=== PATIENT | female | born 1985 | race Caucasian/White ===

== ENCOUNTER → 2016-08-03 | Day surgery (SDC) | payer MEDICAID ==
[2016-06-01 03:31] VITALS: BMI 42.0
[~2016-08-03] MED LIST: BUPIVACAINE 0.25% 30 ML VIAL ONE; CEFAZOLIN 1 GM VIAL ONE; FENTANYL 100 MCG/2 ML VIAL IV PRN; FENTANYL 100 MCG/2 ML VIAL ONE; HYDROmorphone 1 MG INJECTION IV PRN; LABETALOL 20 MG/4 ML SYRINGE IV PRN; MEPERIDINE 25 MG/ML TUBEX IV PRN; ONDANSETRON HCL 4 MG ODT TAB PO PRN; ONDANSETRON HCL 4 MG/2 ML VIAL IV PRN; PROMETHAZINE 25 MG/ML VIAL IV PRN; hydrALAZINE 20 MG/ML VIAL IV PRN
[2016-08-03 06:35] LABS: AUTOMATED BASOPHIL 0.5 % (0-2); AUTOMATED LYMPH 28.2 % (17-44); AUTOMATED MONOCYTE 7.8 % (3-10); AUTOMATED NEUTROPHIL 61.5 % (45-76); MPV 8.3 fL (7.4-10.4)
--- NOTE | 2016-08-03 06:59 | SC.ANESPOS ---
Post-Anesthesia Note LOC: [facility] Calling Post-Anesthesia Assessment: Awake, Returned to Baseline, Hemodynamically Stable , Pain Control Adequate Phase I & II Recovery Complete: Yes Apparent Anesthesia Complication: No : N - Vital Signs Blood Pressure: 135/63 Pulse: 76 Resp Rate: 16 O2 Sat: 98 Temp: 97.5 F
--- NOTE | 2016-08-03 07:07 | HIM.ANES ---
Anesthesia Evaluation & Plan Diagnoses: ENCOUNTER FOR OT GENERAL CNSL AND ADVICE ON CONTRACEPTION (08/03/16) Consented Procedure: laparoscopic tubal ligation - Focused Review of Systems Cardiac History: No: Hx Cardiac Disorders HEENT: No: Other HEENT Problems Gastrointestinal: Yes: Hx Gastroesophageal Reflux Disease (During / controlled now) No: Hx Gastrointestinal Disorders Neurological/Musculoskeletal: No: Hx Neurological Disorders Psychological: No Hx Mental/Emotional Disorders Endocrine: Yes: Hx Diet Controlled Diabetes Blood/Autoimmune: Yes: Hx Anemia (LOW IRON LEVEL) No: Hx AIDS, Hx Hepatitis (type) Smoking Status: Never smoker Past Social History: Denies: Substance Use Disorder Hx Stress Test (date): No Hx Echocardiogram (date): No Hx Chest Xray (date): No Surgical History: Yes: Appendectomy (AGE 9) Other Surgical History: 05/2016 C SECTION - Focused Physical Exam NPO since: 08/02/16 1800 Mallampati: Class III Thyromental Distance: Greater than 3 Neck: Full Range of Motion Dental: Normal - no significant findings Cardiovascular/Chest: Normal Respiratory: Lungs clear Any problems with anesthesia, including nausea and vomiting?: No Any relatives with a history of Malignant Hyperthermia?: No Beta Izabel given (if appropriate): N/A Does the patient have a history of Motion Sickness-: No Other: Problem List Problem Status Onset 39 weeks gestation of Acute delivery delivered Acute GBS (group B Streptococcus carrier), +RV culture, currently Acute Gestational diabetes Acute Macrosomia affecting management of mother in third trimester Acute care following delivery Acute Single live Acute PT/PTT/INR/ Urine Test Neg (NEGATIVE) 08/03/16 06:20 CBC/BMP/Other 08/03/16 06:20 Allergies Allergy/AdvReac Type Severity Reaction Status Date / Time No Known Allergies Allergy Verified 08/03/16 06:33 Home Medications Medication Instructions Recorded Last Taken Type Ferrous Sulfate [Iron] 325 mg PO BID #60 tablet 06/03/16 1 Day Ago Rx Norethindrone-E.estradiol-Iron 1 each PO DAILY 07/21/16 1 Week Ago History [Microgestin 24 Fe 1 mg-20 Mcg] Height and Weight Patient's height 5 ft 4 in Patient's weight 230 lb BMI 42.0 Vital Signs Temperature 97.5 F 08/03/16 06:59 Pulse Rate 76 01/13/17 06:59 Respiratory Rate 16 08/03/16 06:59 Blood Pressure 135/63 08/03/16 06:59 Pulse Oxygen Saturation 98 08/03/16 06:59 - Anesthetic Plan Anesthesia Type: General ASA Class: 3 -: I have examined this patient and reviewed the medical record. The patient has been assessed prior to anesthesia. Risks and benefits of anesthesia and anesthetic technique options have been discussed and all questions answered. The patient accepts the risk and desires me to proceed with the planned anesthetic.
--- NOTE | 2016-08-03 08:15 | HIMOPRPT ---
DESCRIPTION OF PROCEDURE: DATE OF PROCEDURE: 08/03/16 PREOPERATIVE DIAGNOSIS: Desires permanent sterilization. POSTOPERATIVE DIAGNOSIS: Desires permanent sterilization. PROCEDURE: Laparoscopic tubal ligation via cautery. SURGEON: Katia Franklin DO ANESTHESIA: General. COMPLICATIONS: None. ESTIMATED BLOOD LOSS: 1 mL. URINE OUTPUT: 400 mL of clear urine drained at the beginning of procedure. PROCEDURE IN DETAIL: The patient was taken to the operating room where she was prepped and draped in a normal sterile fashion. A red rubber catheter was inserted and approximately 400 mL of clear urine was drained from the bladder, and then Allis clamp was placed on the cervix to aid in uterine manipulation. Attention was then turned to the already prepped abdomen, in which subumbilical region was injected with 0.25% plain Sensorcaine and a 10-mm skin incision was made with a scalpel. The side-arm camera was inserted with a 10-mm trocar under direct visualization. Once intraperitoneal placement had been verified, abdomen was insufflated with gas. The patient was then placed in Trendelenburg position. The pelvis was inspected and noted to have normal uterus, tubes, and ovaries. There is noted to be omental adhesions anteriorly. An extra long Kleppinger was used to cauterize bilateral tubes for approximately 2-cm segment with no visible lateral spread of heat to surrounding tissue. At this time, the procedure was ended. The patient was taken out of Trendelenburg position. The gas was let out of the abdomen and the trocar was removed. The incision was closed using 4-0 Monocryl in a subcuticular stitch, and the Allis clamp was removed from the cervix. The patient tolerated the procedure well and sent to recovery room in stable condition.
[2016-08-03 14:52] VITALS: BP 135/63; PULSE 76; TEMP 97.5
== END ==
LOC: SDC 06:05
PROVIDERS: ATTEND Obstetrics & Gynecology
PROC: 0U574ZZ Destruction of Bilateral Fallopian Tubes, Percutaneous Endoscopic Approach (ICD-10-PCS; principal; 2016-08-03 07:15)
DX: Z30.2 Encounter for sterilization (principal); K21.9 Gastro-esophageal reflux disease without esophagitis; E11.9 Type 2 diabetes mellitus without complications; D50.9 Iron deficiency anemia, unspecified; E66.01 Morbid (severe) obesity due to excess calories; Z68.41 Body mass index [BMI] 40.0-44.9, adult; Z79.899 Other long term (current) drug therapy
CPT/HCPCS: 58670; 81025; 85025; J0690; J3010; J3490; S0020